=== PATIENT | female | born 1935 | race Caucasian/White ===

== ENCOUNTER 2017-07-27 13:23 | Emergency (ER) | payer MEDICARE, OTHER ==
[~2017-07-27] VITALS: Ht 157.5 cm; Wt 63.0 kg
[~2017-07-27 13:23] MED LIST: ESTR0.5T PO; METO100T9 PO; OMEP20.62 PO; TRAM50 PO
[2017-07-27 13:25] VITALS: BP 128/65; PULSE 76; RESP 18; TEMP 97.7
[2017-07-27] MEDS ORDERED: METO1TAB43 PO (13:59)
[2017-07-27] MEDS ORDERED: OMEP20TA93 PO (13:59)
[2017-07-27] MEDS ORDERED: ESTR0.5T PO (13:59)
[2017-07-27 14:13] LABS: BILIRUBIN, URINE NEG (NEG); BLOOD, URINE NEG (NEG); GLUCOSE,URINE NEG (NEG); KETONE, URINE TRACE mg/dL (NEG); NITRITE,URINE NEG (NEG); URINE LEUKOCYTE ESTERASE NEG (NEG)
--- NOTE | 2017-07-27 14:17 | PD ---
HPI Chief Complaint: Abdominal Pain Time Seen by Provider: 13:53 Travel History International Travel<30 days: No Contact w/Intl Traveler<30days: No Traveled to known affect area: No History of Present Illness HPI The patient was seen and examined in the presence of the nurse. This patient complains of pain in her left flank and some abdominal cramping and bloating. Duration one day. Severity is moderate. Has not had vomiting or diarrhea or fever. She had a very small bowel movement this morning. No alleviating factors. No exacerbating factors. PFSH Past Medical History Cardiovascular Problems: Yes (RBBB) Diminished Hearing: No GERD: Yes Hypertension: Yes Respiratory: Yes (CHILDHOOD ASTHMA) ?: Not Menopausal: Yes Social History Alcohol Use: Yes (WINE, ON OCCASION) Tobacco Use: No Substance Use: No Allergies-Medications (Allergen,Severity, Reaction): Coded Allergies: penicillin G (Unverified Allergy, Intermediate, HIVES, 07/27/17) tetanus immune globulin (Unverified Allergy, Intermediate, HIVES, 07/27/17) Reported Meds & Prescriptions Reported Meds & Active Scripts Active Flagyl (Metronidazole) 500 Mg Tab 500 Mg PO QID 7 Days Cipro (Ciprofloxacin HCl) 500 Mg Tab 500 Mg PO BID Zofran (Ondansetron HCl) 4 Mg Tab 4 Mg PO Q6HR PRN Reported Omeprazole 20 Mg Tab 20 Mg PO DAILY Metoprolol Succinate ER 24 HR (Metoprolol Succinate) 100 Mg Tab 100 Mg PO DAILY Estradiol 0.5 Mg Tab 0.5 Mg PO DAILY Review of Systems General / Constitutional: No: Fever Eyes: No: Visual changes HENT: No: Headaches Cardiovascular: No: Chest Pain or Discomfort Respiratory: No: Shortness of Breath Gastrointestinal: Positive: Nausea, Abdominal Pain, Constipation Genitourinary: Positive: Flank Pain, No: Dysuria Musculoskeletal: No: Pain Skin: No Rash Neurologic: No: Weakness Psychiatric: No: Depression Endocrine: No: Polydipsia Hematologic/Lymphatic: No: Easy Bruising Physical Exam Narrative GENERAL: Well-nourished, well-developed patient in no apparent distress. SKIN: Focused skin assessment reveals no rash and nodules. Skin is Warm and dry. HEAD: Atraumatic. Normocephalic. EYES: Pupils equal and round. No scleral icterus. No injection or drainage. ENT: No nasal bleeding or discharge. Mucous membranes pink and moist. NECK: Trachea midline. No JVD. CARDIOVASCULAR: Regular rate and rhythm. No murmur appreciated. RESPIRATORY: No accessory muscle use. Clear to auscultation. Breath sounds equal bilaterally. GASTROINTESTINAL: Abdomen soft, non-tender, nondistended. Hepatic and splenic margins not palpable. MUSCULOSKELETAL: No obvious deformities. No clubbing. No cyanosis. No edema. NEUROLOGICAL: Awake and alert. No obvious cranial nerve deficits. Motor grossly within normal limits. Normal speech. PSYCHIATRIC: Appropriate mood and affect; insight and judgment normal. Data Data Last Documented VS Vital Signs Date Time Temp Pulse Resp B/P (MAP) Pulse Ox O2 Delivery O2 Flow Rate FiO2 07/27/17 13:25 97.7 76 18 128/65 (86) Orders Orders Urinalysis - C+S If Indicated (07/27/17 13:56) Ct Abd/Pel W/O Iv Contrast (07/27/17 ) Urine Culture (07/27/17 14:02) Labs Laboratory Tests Test 07/27/17 14:02 Urine Collection Type CLEAN CATCH Urine Color JAYME Urine Turbidity MOD Urine pH 6.0 Urine Specific [place] 1.026 Urine Protein 30 mg/dL Urine Glucose (UA) NEG mg/dL Urine Ketones TRACE mg/dL Urine Occult Blood NEG Urine Nitrite NEG Urine Bilirubin NEG Urine Leukocyte Esterase NEG Urine WBC 0-2 /hpf Urine Squamous Epithelial Cells > 8 /hpf Urine Amorphous Sediment MOD Urine Bacteria MOD /hpf Microscopic Urinalysis Comment CULTURE INDICATED Urine Collection Time 1402 MDM Medical Decision Making Medical Screen Exam Complete: Yes Emergency Medical Condition: Yes Medical Record Reviewed: Yes Differential Diagnosis Kidney stone, sciatica, ileus Narrative Course I have reviewed the patient's electronic medical record. Urinalysis is clean Abdomen is soft and benign and nontender CT of abdomen and pelvis shows some diverticulitis changes Reviewed with daughter who is a PA Prescribed antibiotics and nausea medicine. She declines pain medicine. I recommended colonoscopy after inflammatory changes improved Additional Instructions: The patient was advised to follow up with their physician and return if they worsen. The patient was warned about potential sedation for the medications they will receive on prescription. Med/Other Pt SpecificInfo: Prescription(s) given Scripts Metronidazole (Flagyl) 500 Mg Tab 500 MG PO QID for Infection for 7 Days, TAB 0 Refills Prov: Dimas Alexis MD 07/27/17 Ciprofloxacin (Cipro) 500 Mg Tab 500 MG PO BID for Infection, #14 TAB 0 Refills Prov: Dimas Alexis MD 07/27/17 Ondansetron (Zofran) 4 Mg Tab 4 MG PO Q6HR Y for NAUSEA OR VOMITING, #12 TAB 0 Refills Prov: Dimas Alexis MD 07/27/17 Disposition: 01 DISCHARGE HOME Condition: Stable Dimas Alexis MD Jul 27, 2017 14:17
[2017-07-27 14:22] LABS: URINE COLOR AMBER (YELLW/STRAW)
[2017-07-27 14:23] LABS: AMORPHOUS SEDIMENT, URINE MOD; BACTERIA, URINE MOD /hpf; SQUAMOUS EPITHELIAL CELL URINE > 8 /hpf (0-5)
[2017-07-27 14:24] LABS: WBC, URINE 0-2 /hpf (0-5)
--- NOTE | 2017-07-27 14:44 | RADRPT ---
EXAM DATE/TIME: 07/27/2017 14:25 [facility] COMPARISON: No previous studies available for comparison. INDICATIONS : Lower back pain. Evaluate for renal calculi. ORAL CONTRAST: No oral contrast ingested. RADIATION DOSE: 14.65 CTDIvol (mGy) MEDICAL HISTORY : Hypertension. Gastroesophageal reflux disease. SURGICAL HISTORY : Right hip surgery. ENCOUNTER: Initial ACUITY: 3 days PAIN SCALE: 4/10 LOCATION: Left lower quadrant TECHNIQUE: Volumetric scanning of the abdomen and pelvis was performed. Using automated exposure control and ad justment of the mA and/or kV according to patient size, radiation dose was kept as low as reasonably achievable to obtain optimal diagnostic quality images. DICOM format image data is available electro nically for review and comparison. FINDINGS: LOWER LUNGS: Minimal bibasilar atelectasis. LIVER: Homogeneous density without lesion. There is no dilation of the biliary tree. Distended without calc ified gallstones. SPLEEN: Normal size without lesion. PANCREAS: Within normal limits. KIDNEYS: Normal in size and shape. There is no contour deforming mass, stone, or hydronephrosis. ADRENAL GLANDS: Within normal limits. VASCULAR: Moderate atherosclerotic calcifications without aneurysm. BOWEL/MESENTERY: Mild sigmoid diverticulosis. Inflammatory change in the distal sigmoid at the junction of the rectum. Appendix is normal. There is no free intraperitoneal air or drainable fluid collection. ABDOMINAL WALL: Within normal limits. RETROPERITONEUM: There is no lymphadenopathy. BLADDER: No wall thickening or mass. REPRODUCTIVE: Within normal limits. INGUINAL: There is no lymphadenopathy or hernia. MUSCULOSKELETAL: Right hip arthroplasty in place. Degenerative spondylosis of the lower lumbar spine. No abnormal foca l lesion. CONCLUSION: 1. No radiopaque renal calculi or obstructive uropathy as questioned. 2. Mild sigmoid diverticulosis with inflammatory change in the distal sigmoid at the junction of the rectum consistent with diverticulitis. No perforation or abscess at this time. Recommend followup exa mination or colonoscopy following appropriate course of treatment to exclude inflammatory mass. Tom Lucas MD on July 27, 2017 at 14:37 Board Certified Radiologist. This report was verified electronically.
[2017-07-27] MEDS ORDERED: ZOFR4TAB PO (15:40)
[2017-07-27] MEDS ORDERED: METR-1 PO (15:40)
[2017-07-27] MEDS ORDERED: CIPR-9 PO (15:40)
[2017-07-27 15:49] VITALS: BP 112/56; PULSE 68; RESP 18; O2SAT 94
== END 2017-07-27 15:54 | disposition home or self-care (01) ==
LOC: PHED 13:23
DX: K57.92 Diverticulitis of intestine, part unspecified, without perforation or abscess without bleeding (principal); R11.2 Nausea with vomiting, unspecified; B96.89 Other specified bacterial agents as the cause of diseases classified elsewhere
CPT/HCPCS: 74176; 81001; 87086; 99284

== ENCOUNTER 2017-12-02 00:08 | Inpatient (IN) | END 2017-12-07 16:28 | LOC: N06 00:40 | PROVIDERS: ADMIT Family Medicine; ATTEND Family Medicine ==